=== PATIENT | male | born 1995 | race African-American/Black ===

== ENCOUNTER 2022-05-23 14:07 | Emergency (ER) | payer MEDICAID ==
[~2022-05-23] VITALS: Ht 182.9 cm; Wt 104.5 kg
[2022-05-23] MEDS ORDERED: IBUPROFEN 600 MG TABLET PO ONE (16:00)
[2022-05-23 17:53] VITALS: BP 115/73
== END 2022-05-23 17:55 | disposition home or self-care (01) ==
LOC: EMS 14:10
DX: M20.012 Mallet finger of left finger(s) (principal); F17.210 Nicotine dependence, cigarettes, uncomplicated; Z91.013 Allergy to seafood; Z91.09 Other allergy status, other than to drugs and biological substances
CPT/HCPCS: 99283